=== PATIENT | male | born 1995 | race Caucasian/White ===

== ENCOUNTER → 2020-08-08 | Outpatient (CLI) | payer OTHER ==
[~2020-08-08] MED LIST: OXYC-307 PO; metoclopramide PO
[2020-08-08 15:20] LABS: ALBUMIN 4.5 g/dL (3.4-5.0); ANION GAP 5 mmol/L (5-15); CALCIUM 9.5 mg/dL (8.5-10.1); CHLORIDE 105 mmol/L (98-107)
[2020-08-08 15:28] LABS: ALANINE AMINOTRANSFERASE 21 U/L (12-78); ALKALINE PHOSPHATASE 74 U/L (45-117); BILIRUBIN,TOTAL 1.3 mg/dL (0.2-1.0); CREATININE 0.92 mg/dL (0.7-1.3); TOTAL PROTEIN 7.8 g/dL (6.4-8.2)
[2020-08-08 15:34] LABS: BASOPHILS # (AUTO) 0.03 x10^3/uL (0-0.1); BASOPHILS % (AUTO) 0 % (0-1); EOSINOPHILS # (AUTO) 0.12 x10^3/uL (0-0.4); EOSINOPHILS % (AUTO) 1 % (1-7); LYMPHOCYTES # (AUTO) 2.08 x10^3/uL (1-3.4); LYMPHOCYTES % (AUTO) 24 % (22-44); MD NO; MEAN CORPUSCULAR HEMOGLOBIN 32.4 pg (27.5-34.5); MEAN CORPUSCULAR VOLUME 95.4 fL (81-97); MEAN PLATELET VOLUME 7.7 fL (7.4-10.4); MONOCYTES # (AUTO) 0.49 x10^3/uL (0.2-0.8); MONOCYTES % (AUTO) 6 % (2-9); NEUTROPHILS % (AUTO) 69 % (42-75); PLATELET COUNT 193 x10^3/uL (130-400); RED BLOOD COUNT 5.26 x10^6/uL (4.38-5.82); RED CELL DISTRIBUTION WIDTH 13.1 % (9.4-14.8)
== END | disposition home or self-care (01) ==
LOC: STAR 14:02
PROVIDERS: ATTEND Surgery
DX: Z01.812 Encounter for preprocedural laboratory examination (principal); Z20.828 Contact with and (suspected) exposure to other viral communicable diseases
CPT/HCPCS: 36415; 80053; 85025; 87635

== ENCOUNTER → 2020-08-12 | Day surgery (SDC) | payer OTHER ==
[~2020-08-12] VITALS: Ht 175.3 cm; Wt 68.6 kg
[~2020-08-12] MED LIST changes: +ACETAMINOPHEN 325 MG TABLET PO PRN; +BUPIVACAINE/PF 0.25% ONE; +BUPIVACAINE/PF-EPI 0.25% 1:200K INFIL ONE; +CEFOTETAN PMX 2GM/50ML 50 ML IVPB ONE; +CHLORHEXIDINE 15 ML UDC MM ONE; +CHLORHEXIDINE 15 ML UDC ONE; +DEXAMETHASONE 4 MG/ML, 1ML ONE; +EPINEPHRINE 1 MG/ML, 1ML ONE; +FENTANYL PF 100 MCG/2ML ONE; +FENTANYL PF 250 MCG/5ML ONE; +GLYCOPYRROLATE 0.2MG/1ML, 5ML ONE; +HYDROmorphone 1 MG/ML, 1ML INJ IVPush PRN; +LACTATED RINGERS 1,000 ML IV SCH; +LIDOCAINE PF 2%, 5ML ONE; +LORazepam 2 MG/ML, 1ML IVPush PRN; +MEPERIDINE/PF 25MG/0.5ML IVPush PRN; +MEPERIDINE/PF 25MG/ML,1ML ONE; +MIDAZOLAM 1 MG/ML, 2ML ONE; +NEOSTIGMINE 1 MG/ML, 10ML ONE; +ONDANSETRON 2MG/ML, 2ML IVPush PRN; +ONDANSETRON 2MG/ML, 2ML ONE; +OXYcodone 5 MG/5 ML ORAL.SOL UDC ONE; +OXYcodone 5 MG/5 ML ORAL.SOL UDC PO PRN; +PROMETHAZINE 25 MG SUPP PR PRN; +PROMETHAZINE 25 MG/ML, 1ML IVPush PRN; +PROPOFOL 10 MG/ML, 20ML ONE; +ROCURONIUM 10 MG/ML,10ML ONE; +SUCCINYLCHOLINE 20 MG/ML, 10ML ONE
[2020-08-12 13:05] VITALS: BP 115/74
[2020-08-12] MEDS: FENTANYL PF 100 MCG/2ML IV PRN ×4 (16:01→16:38)
== END | disposition home or self-care (01) ==
LOC: OUT 12:53
PROVIDERS: ATTEND Surgery
DX: K80.10 Calculus of gallbladder with chronic cholecystitis without obstruction (principal); E80.4 Gilbert syndrome; F17.210 Nicotine dependence, cigarettes, uncomplicated; Z88.0 Allergy status to penicillin; Z91.018 Allergy to other foods; Z90.49 Acquired absence of other specified parts of digestive tract; Z98.890 Other specified postprocedural states
CPT/HCPCS: 47562; 88304; C1729; C1760; J0171; J1100; J2175; J2250; J2405; J2704; J2710; J3010; J3490; J0330